=== PATIENT | female | born 1975 | race Caucasian/White ===

== ENCOUNTER 2022-05-19 17:01 | Observation (INO) ==
[2022-05-19] MEDS ORDERED: LABETALOL 20 MG/4 ML SYRINGE IV STA (18:32)
[2022-05-19] MEDS ORDERED: ASPIRIN 325 MG TABLET PO STA (18:32)
[2022-05-19] MEDS ORDERED: MORPHINE 2 MG/1 ML SYRINGE IV STA (18:32)
[2022-05-19] MEDS ORDERED: ONDANSETRON 4 MG/2 ML VIAL IV STA (18:32)
[2022-05-19] MEDS ORDERED: NITROGLYCERIN 2% OINT 1 INCH/GM PACK TOP STA (18:32)
[2022-05-19 18:50] LABS: Basophils # 0.1 10*3/uL (0.0-0.2); Basophils % 0.6 % (0.0-0.8); Eosinophils # 0.3 10*3/uL (0.0-0.87); Eosinophils % 3.2 % (0.00-10.9); Hematocrit 42.5 VOL% (35.7-47.0); Hemoglobin 14.7 GM/DL (12.0-16.0); Immature Granulocytes % 0.7 %; Immature Granulocytes Absolute 0.08 #; Lymphocytes # 2.3 10*3/uL (1.4-4.0); Lymphocytes % 21.8 % (21.3-54.2); Mean Corpuscular HGB Conc 34.6 GM/DL (32-36); Mean Corpuscular Volume 85.7 FL (87-102); Monocytes # 0.7 10*3/uL (0.11-0.8); Monocytes % 6.7 % (1.7-12.7); Platelet Count 238 T/CUMM (130-400); Red Blood Count 4.96 MC/CUMM (3.8-5.5); Red Cell Distribution Width 13.3 % (9.3-17.3); White Blood Count 10.7 T/CUMM (4-12)
[2022-05-19 21:08] LABS: Calcium 8.8 MG/DL (8.5-10.1)
[2022-05-19 21:10] LABS: Albumin 3.8 G/DL (3.4-5.0)
[2022-05-19] MEDS ORDERED: ENOXAPARIN 100 MG/ML SYRINGE SUBCUT STA (21:14)
[2022-05-19 21:16] LABS: Bilirubin,Total 0.6 MG/DL (0.20-1.00); Total Protein 7.6 G/DL (6.4-8.2)
[2022-05-19] MEDS ORDERED: ENOXAPARIN 80 MG/0.8 ML SYRINGE SUBCUT STA (21:19)
[2022-05-19] MEDS ORDERED: hydrALAZINE 20 MG/1 ML VIAL IV PRN (22:18)
[2022-05-19] MEDS ORDERED: ONDANSETRON 4 MG/2 ML VIAL IV PRN (22:18)
[2022-05-19] MEDS ORDERED: diphenhydrAMINE CAP 25 MG CAPSULE PO PRN (22:18)
[2022-05-19] MEDS ORDERED: GLUCAGON 1 MG VIAL IM PRN ×2 (22:18)
[2022-05-19] MEDS ORDERED: NICOTINE 21 MG/24 HR PATCH TRANSDERM PRN (22:18)
[2022-05-19] MEDS ORDERED: ALBUTEROL/IPRATROPIUM 3 ML NEB RESP TX PRN (22:18)
[2022-05-19] MEDS ORDERED: ZALEPLON 5 MG CAPSULE PO PRN (22:18)
[2022-05-19] MEDS ORDERED: ACETAMINOPHEN 325 MG TABLET PO PRN (22:18)
[2022-05-19] MEDS ORDERED: DEXTROSE 50% 25 GM/50 ML VIAL IV PRN (22:18)
[2022-05-19] MEDS ORDERED: MORPHINE 2 MG/1 ML SYRINGE IV PRN (22:18)
[2022-05-19] MEDS ORDERED: guaiFENesin/DM ER 600-30 MG TABLET PO PRN (22:18)
[2022-05-19] MEDS ORDERED: DEXTROSE 10% 250 ML BAG IV PRN (22:24)
[2022-05-20 05:03] LABS: Basophils % 0.4 % (0.0-0.8); Eosinophils # 0.3 10*3/uL (0.0-0.87); Eosinophils % 3.2 % (0.00-10.9); Hematocrit 38.8 VOL% (35.7-47.0); Hemoglobin 12.8 GM/DL (12.0-16.0); Immature Granulocytes % 0.8 %; Immature Granulocytes Absolute 0.07 #; Lymphocytes # 2.2 10*3/uL (1.4-4.0); Lymphocytes % 24.5 % (21.3-54.2); Mean Corpuscular Volume 86.4 FL (87-102); Mean Platelet Volume 9.8 FL (9.6-12.0); Monocytes # 0.7 10*3/uL (0.11-0.8); Monocytes % 7.8 % (1.7-12.7); Neutrophils % 63.3 % (38.7-73.9); Platelet Count 193 T/CUMM (130-400); Red Blood Count 4.49 MC/CUMM (3.8-5.5); Red Cell Distribution Width 13.3 % (9.3-17.3); White Blood Count 8.9 T/CUMM (4-12)
[2022-05-20 05:24] LABS: Calcium 8.7 MG/DL (8.5-10.1); Osmolality,Calculated 279.8 MOS/KG (273-304); Potassium 3.6 MMOL/L (3.5-5.1)
[2022-05-20] MEDS ORDERED: PANTOPRAZOLE 40 MG TABLET PO SCH (09:00)
[2022-05-20] MEDS: INSULIN LISPRO 100 UNIT/ML SUBCUT SCH ×2 (09:02→12:14)
[2022-05-20 11:28] LABS: Risk Ratio 4.88; VLDL Cholesterol 67.6 MG/DL
[2022-05-20] MEDS ORDERED: VALSARTAN 80 MG TABLET PO SCH (14:00)
[2022-05-20] MEDS ORDERED: METOPROLOL TARTRATE 100 MG TABLET PO SCH (14:00)
[2022-05-20] MEDS ORDERED: ASPIRIN EC 81 MG TABLET PO SCH (14:00)
[2022-05-20 15:33] VITALS: BP 164/88
== END 2022-05-20 17:25 | disposition home or self-care (01) ==
LOC: N.ED 17:01 → N.EDINP 17:01 → SUATTDRO 22:18 → N.3E 23:51
PROVIDERS: ADMIT Internal Medicine; ATTEND Internal Medicine